=== PATIENT | female | born 1940 | race Two or more races ===

== ENCOUNTER 2018-01-07 21:08 | Inpatient (IN) | payer OTHER ==
[~2018-01-07] VITALS: Ht 165.1 cm; Wt 81.8 kg
--- NOTE | 2018-01-07 22:45 | NUR ---
TELE/RN NOTES RECEIVED PT. FROM [facility] VIA [employer]. PT. IS AWAKE, ALERT AND ORIENTED X3. BREATHING EVEN AND UNLABORED ON ROOM AIR. NO SOB, RESPIRATORY DISTRESS OR COMPLAINTS OF PAIN NOTED AT THIS TIME. NO COMPLAINTS OF CHEST PAIN NOTED AT THIS TIME. ORIENTED PT. TO ROOM. PLACED EXTERNAL FLAP MAKER ON PT. CURRENT RHYTHM = SINUS RHYTHM WITH PAC'S HR 62. PT. WITH LEFT AC 20 GAUGE IV SALINE LOCK PRESENT, PATENT AND INTACT. EPIC ARMATURE WINDER AUTOMOTIVE LINDA LUCAS AWARE OF PT. ARRIVAL, AWAITING ADMITTING ORDERS. BED LOCKED AND IN LOWEST POSITION, SIDE RAILS UP X3, BED ALARM ON, CALL LIGHT WITHIN REACH, WILL CONTINUE TO MONITOR.
[2018-01-07] MEDS ORDERED: IV NS 0.9% 1,000 ML IV PRN (23:05)
[2018-01-07] MEDS ORDERED: ENOXAPARIN SODIUM 40 MG/0.4 ML DISP.SYRIN SQ SCH (23:30)
[2018-01-07] MEDS ORDERED: HYDROCODONE/APAP 5/325MG 1 EACH TABLET PO PRN (23:30)
[2018-01-07] MEDS ORDERED: ACETAMINOPHEN 325 MG TABLET PO PRN (23:30)
[2018-01-07] MEDS ORDERED: CLONIDINE HCL 0.1 MG TABLET PO PRN (23:30)
[2018-01-07] MEDS ORDERED: ZOLPIDEM TARTRATE 5 MG TABLET PO PRN (23:30)
[2018-01-07] MEDS ORDERED: ONDANSETRON HCL/PF 4 MG/2 ML VIAL IVP PRN (23:30)
[2018-01-07] MEDS ORDERED: NITROGLYCERIN 0.4 MG/TAB BOTTLE SL PRN (23:30)
[2018-01-07] MEDS ORDERED: MORPHINE SULFATE INJ 2 MG/ML DISP.SYRIN IV PRN (23:30)
[2018-01-07] MEDS ORDERED: MAGNESIUM HYDROXIDE 30 ML UDC PO PRN (23:30)
[2018-01-07] MEDS ORDERED: ALBUTEROL FS 2.5 MG/0.5 ML VIAL.NEB NEB PRN (23:30)
[2018-01-07] MEDS ORDERED: Z GUARD REMEDY 2 OZ OINT TP PRN (23:30)
[2018-01-07] MEDS ORDERED: MAG HYDROX/AL HYDROX/SIMETH 30 ML UDC PO PRN (23:30)
[2018-01-08] MEDS ORDERED: CALC-731 PO (03:10)
[2018-01-08] MEDS ORDERED: SIMV20TA6 PO (03:10)
[2018-01-08] MEDS ORDERED: ATEN-170 PO (03:10)
[2018-01-08] MEDS ORDERED: HYDR25TA4 PO (03:10)
[2018-01-08] MEDS ORDERED: MEMA10TA PO (03:10)
[2018-01-08] MEDS ORDERED: KETO10DR3 EACHEYE (03:10)
[2018-01-08] MEDS ORDERED: CELE200C PO (03:10)
[2018-01-08] MEDS ORDERED: FOSI10TA4 PO (03:10)
[2018-01-08] MEDS ORDERED: AMIT25TA9 PO (03:10)
[2018-01-08 04:00] VITALS: BP 149/79
[2018-01-08 06:28] LABS: BASOPHILS % (AUTO) 0.5 % (0.0-2.0); EOSINOPHILS % (AUTO) 1.6 % (0.0-6.0); HEMATOCRIT 41 % (33-45); HEMOGLOBIN 13.5 g/dL (11.5-14.8); LYMPHOCYTES # (AUTO) 1.8 /CMM (0.8-4.8); LYMPHOCYTES % (AUTO) 28.9 % (20.0-44.0); MEAN CORPUSCULAR HGB CONC 33 g/dl (31.0-36.0); MEAN CORPUSCULAR VOLUME 93 fL (82-100); MONOCYTES # (AUTO) 0.5 /CMM (0.1-1.30); MONOCYTES % (AUTO) 8.8 % (2.0-12.0); NEUTROPHILS # (AUTO) 3.8 /CMM (1.8-8.9); NEUTROPHILS % (AUTO) 60.2 % (43.0-81.0); PLATELET COUNT (AUTO) 205 /CMM (150-450); RED BLOOD CELL COUNT(AUTO) 4.35 MIL/uL (4.0-5.2); WHITE BLOOD COUNT (AUTO) 6.3 K/uL (4.3-11.0)
[2018-01-08 06:43] LABS: CHOLESTEROL 132 mg/dL (<200); HDL CHOLESTEROL 71 mg/dL (40-60); LDL 52 mg/dL (0-99); TRIGLYCERIDES 40 mg/dL (30-150)
[2018-01-08 06:44] LABS: ALANINE AMINOTRANSFERASE 24 U/L (12-78); ALBUMIN 3.4 g/dL (3.4-5.0); ALKALINE PHOSPHATASE 79 U/L (46-116); ASPARTATE AMINOTRANSFERASE 22 U/L (15-37); BILIRUBIN,TOTAL 0.5 mg/dL (0.2-1.0); CARBON DIOXIDE 29 mmol/L (21-32); CHLORIDE 105 mmol/L (98-107); CREATININE 0.8 mg/dL (0.6-1.3); GLUCOSE 87 mg/dL (74-106); MAGNESIUM 1.8 mg/dL (1.8-2.4); POTASSIUM 3.5 mmol/L (3.5-5.1); SODIUM SERUM 143 mmol/L (136-145); TOTAL PROTEIN, SERUM 7.2 g/dL (6.4-8.2); UREA NITROGEN, BLOOD 10 mg/dL (7-18)
--- NOTE | 2018-01-08 07:05 | NUR ---
TELE/RN NOTES PT. IS LYING IN BED RESTING. BREATHING EVEN AND UNLABORED ON ROOM AIR. NO SOB, RESPIRATORY DISTRESS OR COMPLAINTS OF PAIN NOTED AT THIS TIME. NO COMPLAINTS OF CHEST PAIN NOTED AT THIS TIME AND THROUGHOUT SHIFT. PT. WITH EXTERNAL WIRE BORDER ASSEMBLER PRESENT AND INTACT. CURRENT RHYTHM = SINUS RHYTHM HR 63. PT. WITH LEFT AC 20 GAUGE PERIPHERAL IV PRESENT, PATENT AND INTACT ADMINISTERING TO PT. NS @ 50 ML/HR. ALL PT. NEEDS MET. BED LOCKED AND IN LOWEST POSITION, SIDE RAILS UP X2, BED ALARM ON, CALL LIGHT WITHIN REACH, WILL ENDORSE TO DAYSHIFT NURSE FOR CONTINUITY OF CARE.
[2018-01-08] MEDS ORDERED: PANTOPRAZOLE 40 MG TABLET.DR PO SCH (07:30)
[2018-01-08 08:00] VITALS: BP 136/70
[2018-01-08] MEDS ORDERED: REGADENOSON 0.4 MG/5 ML DISP.SYRIN IVP ONE (09:00)
[2018-01-08] MEDS ORDERED: ASPIRIN EC 81 MG TABLET.DR PO SCH (09:00)
[2018-01-08] MEDS ORDERED: METO-356 PO (12:17)
[2018-01-08] MEDS ORDERED: LEVO125T8 PO (12:17)
[2018-01-08] MEDS ORDERED: IBUP-1955 PO (12:17)
[2018-01-08] MEDS ORDERED: DONE10TA44 PO (12:17)
--- NOTE | 2018-01-08 12:30 | NUR ---
ROHINISUDERICK RN NOTE LIANE ZALDIVAR NP AWARE THAT MED RECON READY TO BE FINALIZED.
[2018-01-08 16:00] VITALS: BP 149/89
--- NOTE | 2018-01-08 17:30 | NUR ---
MEDSURKate RN NOTE PATIENT PREPARED FOR DISCHARGE. DISCHARGE INSTRUCTIONS COMPLETED AND PRINTED, EXITCARE COMPLETE AND PRINTED AND GIVEN TO PATIENT AND SIGNED BY PATIENT'S DAUGHTER ADITYA. PATIENT ECU[place]OREAN SPEAKING BUT DAUGHTER STATES UNDERSTANDING OF DISCHARGE INSTRUCTIONS. OFFERED TO VACCINATE PATIENT BUT DAUGHTER SAID THAT PATIENT RECEIVED THE FLU VACCINE LAST MONTH AND PNEUMONIA VACCINE WITHIN THE LAST 5 YEARS. SKIN INTACT, PATIENT HAS NO BELONGINGS SINCE DAUGHTER SAID SHE TOOK EVERYTHING HOME. IV SITE ON LEFT AC REMOVED, NO BLEEDING OR SIGNS OF INFECTION. VITAL SIGNS WITHIN NORMAL LIMITS. TYLENOL GIVEN FOR COMPLAINT OF HEADACHE. DENIES CHEST PAIN. PATIENT LEFT ACCOMPANIED WITH DAUGHTER AND TOY PACKER AT 17:20.
== END 2018-01-08 17:20 | disposition home or self-care (01) | DRG 203 ==
LOC: TELE 23:13 → MED 01-08 08:54
PROVIDERS: ADMIT Nurse Practitioner Acute Care; ATTEND Nurse Practitioner Acute Care
DX: M94.0 Chondrocostal junction syndrome [Tietze] (principal); E03.9 Hypothyroidism, unspecified; E78.5 Hyperlipidemia, unspecified; I10 Essential (primary) hypertension; M19.90 Unspecified osteoarthritis, unspecified site; Z86.73 Personal history of transient ischemic attack (TIA), and cerebral infarction without residual deficits; E66.9 Obesity, unspecified; Z68.30 Body mass index [BMI] 30.0-30.9, adult; R51 Headache; Z71.3 Dietary counseling and surveillance
CPT/HCPCS: 36415; 80053-TC; 80061-TC; 83735-TC; 84100-TC; 84484-TC; 85025-TC; 87081-TC; 93307-TC; A9502; G0378; J1650; J2785; J7030; Z7610

== ENCOUNTER 2018-04-07 00:56 | Inpatient (IN) | payer OTHER ==
[~2018-04-07] VITALS: Ht 165.1 cm; Wt 82.1 kg
[~2018-04-07 00:56] MED LIST: AMIT25TA9 PO; ATEN-170 PO; CALC-731 PO; CELE200C PO; DONE10TA44 PO; FOSI10TA4 PO; HYDR25TA4 PO; IBUP-1955 PO; KETO10DR3 EACHEYE; LEVO125T8 PO; MEMA10TA PO; METO-356 PO; SIMV20TA6 PO
[2018-04-07 03:11] VITALS: BP 122/76
[2018-04-07] MEDS ORDERED: ASPI81TA44 PO (03:31)
[2018-04-07] MEDS ORDERED: IV NS 0.9% 1,000 ML IV PRN (03:55)
[2018-04-07 04:00] VITALS: BP 122/76
[2018-04-07] MEDS ORDERED: ACETAMINOPHEN 325 MG TABLET PO PRN (04:00)
[2018-04-07] MEDS ORDERED: ACETAMINOPHEN 650 MG/SUPP.RECT RC PRN (04:00)
[2018-04-07] MEDS ORDERED: MORPHINE SULFATE INJ 2 MG/ML DISP.SYRIN IV PRN (04:00)
[2018-04-07] MEDS ORDERED: ONDANSETRON HCL/PF 4 MG/2 ML VIAL IVP PRN (04:00)
[2018-04-07] MEDS ORDERED: METRONIDAZOLE 500MG/ NS 100ML 100 ML IV ONE (04:14)
[2018-04-07] MEDS: METRONIDAZOLE 500MG/ NS 100ML 500 MG in PREMIX 1 EA IV SCH ×2 (04:23→12:19)
[2018-04-07] MEDS ORDERED: CEFTRIAXONE 1 G in IV D5W 50 ML IV SCH ×2 (04:30→09:00)
[2018-04-07] MEDS ORDERED: PANTOPRAZOLE 40 MG VIAL IV SCH (07:30)
[2018-04-07 08:00] VITALS: BP 114/53
[2018-04-07 12:00] VITALS: BP_SYST 110; BP_SYST 114; BP_DIAS 53
[2018-04-07] MEDS ORDERED: ENSURE ENLIVE 237 ML LIQUID (VANILLA) PO SCH (12:30)
[2018-04-07 14:22] LABS: BASOPHILS % (AUTO) 0.4 % (0.0-2.0); EOSINOPHILS % (AUTO) 4.5 % (0.0-6.0); HEMATOCRIT 34 % (33-45); HEMOGLOBIN 11.6 g/dL (11.5-14.8); LYMPHOCYTES # (AUTO) 1.4 /CMM (0.8-4.8); LYMPHOCYTES % (AUTO) 19.7 % (20.0-44.0); MEAN CORPUSCULAR HGB CONC 34 g/dl (31.0-36.0); MEAN CORPUSCULAR VOLUME 94 fL (82-100); MONOCYTES # (AUTO) 0.6 /CMM (0.1-1.30); MONOCYTES % (AUTO) 9.2 % (2.0-12.0); NEUTROPHILS # (AUTO) 4.6 /CMM (1.8-8.9); NEUTROPHILS % (AUTO) 66.2 % (43.0-81.0); PLATELET COUNT (AUTO) 215 /CMM (150-450); RED BLOOD CELL COUNT(AUTO) 3.66 MIL/uL (4.0-5.2)
[2018-04-07 14:55] LABS: ALANINE AMINOTRANSFERASE 27 U/L (12-78); ALBUMIN 2.9 g/dL (3.4-5.0); ALKALINE PHOSPHATASE 64 U/L (46-116); ASPARTATE AMINOTRANSFERASE 16 U/L (15-37); BILIRUBIN,TOTAL 0.2 mg/dL (0.2-1.0); CALCIUM, SERUM 8.9 mg/dL (8.5-10.1); CARBON DIOXIDE 30 mmol/L (21-32); CHLORIDE 106 mmol/L (98-107); CREATININE 0.8 mg/dL (0.6-1.3); GLUCOSE 126 mg/dL (74-106); MAGNESIUM 1.9 mg/dL (1.8-2.4); PHOSPHORUS 3.1 mg/dL (2.5-4.9); POTASSIUM 3.5 mmol/L (3.5-5.1); SODIUM SERUM 144 mmol/L (136-145); TOTAL PROTEIN, SERUM 6.2 g/dL (6.4-8.2); UREA NITROGEN, BLOOD 11 mg/dL (7-18)
[2018-04-07] MEDS ORDERED: METR250T PO (15:04)
[2018-04-07] MEDS ORDERED: LEVO500T75 PO (15:04)
[2018-04-07 16:00] VITALS: BP 94/64
[2018-04-07] MEDS ORDERED: MEMANTINE HCL 5 MG TABLET PO SCH (17:00)
[2018-04-07] MEDS ORDERED: AMITRIPTYLINE HCL 25 MG TABLET PO SCH (22:00)
[2018-04-08] MEDS ORDERED: LEVOTHYROXINE SODIUM 112 MCG TABLET PO SCH (07:30)
[2018-04-08] MEDS ORDERED: ATENOLOL 25 MG TABLET PO SCH (09:00)
[2018-04-08] MEDS ORDERED: ASPIRIN EC 81 MG TABLET.DR PO SCH (09:00)
[2018-04-08] MEDS ORDERED: SIMVASTATIN 20 MG TABLET PO SCH (09:00)
[2018-04-08] MEDS ORDERED: FOSINOPRIL SODIUM 10 MG PO SCH (09:00)
== END 2018-04-07 16:39 | disposition home or self-care (01) | DRG 248 ==
LOC: MEDSG1 02:52
PROVIDERS: ADMIT Nurse Practitioner Acute Care; ATTEND Nurse Practitioner Acute Care
DX: A04.9 Bacterial intestinal infection, unspecified (principal); F03.90 Unspecified dementia, unspecified severity, without behavioral disturbance, psychotic disturbance, mood disturbance, and anxiety; E03.9 Hypothyroidism, unspecified; E78.5 Hyperlipidemia, unspecified; I10 Essential (primary) hypertension; M19.90 Unspecified osteoarthritis, unspecified site; Z86.73 Personal history of transient ischemic attack (TIA), and cerebral infarction without residual deficits
CPT/HCPCS: 36415; 80053-TC; 83735-TC; 84100-TC; 85025-TC; 87081-TC; A4216; C9113; G0378; J0696; J3490; J7030; J7060